=== PATIENT | male | born 1975 | race Two or more races ===

== ENCOUNTER 2017-02-26 01:50 | Observation (INO) | payer MEDICAID ==
[~2017-02-26] VITALS: Ht 188 cm; Wt 76.2 kg
[2017-02-26 02:47] LABS: DAU SCREEN DISCLAIMER
[2017-02-26 02:59] LABS: BLOOD UREA NITROGEN 14 mg/dL (7-18)
[2017-02-26 03:00] LABS: ACETAMINOPHEN < 2 mcg/mL (10-30)
[2017-02-26] MEDS ORDERED: LORazepam 1MG TABLET PO ONE (03:30)
[2017-02-26] MEDS ORDERED: LORazepam 1MG TABLET ONE (04:53)
[2017-02-26] MEDS ORDERED: ACETAMINOPHEN 325 MG TABLET PO PRN (05:30)
[2017-02-26] MEDS ORDERED: ONDANSETRON ODT 4 MG PO PRN (05:30)
[2017-02-26] MEDS ORDERED: ZIPRASIDONE 20 MG INJ IM PRN (05:30)
[2017-02-26] MEDS: LORazepam 1MG TABLET PO PRN ×2 (08:51→15:29)
[2017-02-26 20:09] VITALS: BP 105/70
[2017-02-27] MEDS: LORazepam 1MG TABLET PO PRN ×2 (06:32→11:10)
[2017-02-27 07:35] VITALS: BP 125/74
[2017-02-27 19:33] VITALS: BP 128/76
[2017-02-27] MEDS: TRAZODONE 50MG TABLET PO PRN (20:02)
[2017-02-28] MEDS: TRAZODONE 50MG TABLET PO PRN ×2 (03:14→20:16)
[2017-02-28 07:55] VITALS: BP 108/71
[2017-02-28] MEDS: LORazepam 1MG TABLET PO PRN (18:19)
[2017-02-28 19:38] VITALS: BP 127/72
[2017-03-01] MEDS: LORazepam 1MG TABLET PO PRN ×2 (03:18→07:29)
[2017-03-01 07:57] VITALS: BP 112/75
[2017-03-01 19:05] VITALS: BP 118/66
[2017-03-01] MEDS: TRAZODONE 50MG TABLET PO PRN (20:57)
[2017-03-02] MEDS: LORazepam 1MG TABLET PO PRN ×3 (02:23→15:13)
[2017-03-02 08:45] VITALS: BP 119/77
[2017-03-02 19:52] VITALS: BP 126/76
[2017-03-02] MEDS ORDERED: QUETIAPINE 100MG TABLET PO SCH (21:00)
== END 2017-03-03 01:20 ==
LOC: ED 02:49 → EDIP 04:28 → 3E 08:01
PROVIDERS: ADMIT Hospitalist; ATTEND Hospitalist
DX: R45.851 Suicidal ideations (principal); F32.9 Major depressive disorder, single episode, unspecified; F15.10 Other stimulant abuse, uncomplicated; F41.9 Anxiety disorder, unspecified; F17.210 Nicotine dependence, cigarettes, uncomplicated; Z59.0 Homelessness
CPT/HCPCS: 36415; 80048; 80307; 80329; 82040; 85025; 99285; G0378; G0480

== ENCOUNTER 2017-07-04 19:13 | Emergency (ER) | payer MEDICAID ==
[~2017-07-04] VITALS: Ht 172.7 cm; Wt 110.0 kg
[2017-07-04] MEDS ORDERED: SODIUM CHLORIDE 0.9% 1,000 ML IV ONE (19:35)
[2017-07-04] MEDS ORDERED: LORazepam 2 MG/ML, 1ML ONE (19:35)
[2017-07-04] MEDS ORDERED: ACETAMINOPHEN 500 MG TABLET ONE (19:46)
[2017-07-04] MEDS ORDERED: ONDANSETRON 2MG/ML, 2ML IVPush ONE (20:00)
[2017-07-04] MEDS ORDERED: KETOROLAC 30 MG/1 ML IVPush ONE (20:00)
[2017-07-04] MEDS ORDERED: SODIUM CHLORIDE 0.9% 1,000ML IVBOLUS ONE ×3 (20:00→23:00)
[2017-07-04] MEDS ORDERED: LORazepam 2 MG/ML, 1ML IVPush ONE ×2 (20:00)
[2017-07-04] MEDS ORDERED: PLEASE ENTER HEIGHT AND WEIGHT MC SCH (20:00)
[2017-07-04] MEDS ORDERED: ACETAMINOPHEN 500 MG TABLET PO ONE (20:00)
[2017-07-04] MEDS ORDERED: SODIUM CHLORIDE FLUSH 10ML SYR IVF ONE (20:00)
[2017-07-04] MEDS ORDERED: HALOPERIDOL 5 MG/ML ONE (20:04)
[2017-07-04 20:12] LABS: HEMOGLOBIN 13.4 g/dL (13.7-18.0); WHITE BLOOD COUNT 9.4 x10^3/uL (3.4-10)
[2017-07-04 20:26] LABS: ASPARTATE AMINO TRANSFERASE 66 U/L (15-37); BLOOD UREA NITROGEN 24 mg/dL (7-18)
[2017-07-04 20:30] LABS: ACETAMINOPHEN < 2 mcg/mL (10-30)
[2017-07-04] MEDS ORDERED: HALOPERIDOL 5 MG/ML IVPush ONE (20:30)
[2017-07-04 21:04] LABS: DAU SCREEN DISCLAIMER
[2017-07-04] MEDS ORDERED: KETOROLAC 30 MG/1 ML ONE (21:45)
[2017-07-04] MEDS ORDERED: KETAMINE 10 MG/ML, 20ML ONE (21:58)
[2017-07-04] MEDS ORDERED: KETAMINE 100 MG/ML, 5ML IV ONE (22:00)
[2017-07-04 22:07] LABS: RAPID INFLUENZA A Negative (Negative); RAPID INFLUENZA B Negative (Negative)
[2017-07-04] MEDS ORDERED: LIDOCAINE 1%, 20ML ONE (22:19)
[2017-07-04 23:09] LABS: GLUCOSE, CSF 59 mg/dL (40-80)
[2017-07-04 23:52] VITALS: BP 112/64
== END 2017-07-05 01:48 | disposition home or self-care (01) ==
LOC: ED 22:40
DX: R50.9 Fever, unspecified (principal); F15.10 Other stimulant abuse, uncomplicated; F22 Delusional disorders; F41.9 Anxiety disorder, unspecified; R44.3 Hallucinations, unspecified
CPT/HCPCS: 36415; 62270; 70450; 71010; 80053; 80307; 80329; 81003; 82140; 82550; 82945; 83605; 84145; 84157; 85025; 87040; 87070; 87205; 87252; 87400; 89051; 96361; 96374; 96375; 96376; 99152; 99285; J1630; J1885; J2060; J7030; G0479; G0480

== ENCOUNTER 2017-07-07 10:49 | Emergency (ER) | payer MEDICAID ==
[~2017-07-07] VITALS: Ht 177.8 cm; Wt 86.9 kg
[2017-07-07 10:52] VITALS: BP 128/74
[2017-07-07] MEDS ORDERED: LIDOCAINE 1%, 20ML SQ ONE (11:30)
[2017-07-07] MEDS ORDERED: LIDOCAINE 1%, 20ML ONE (11:31)
[2017-07-07] MEDS ORDERED: BACITRACIN ZINC OINT 500U/GM, 0.9 GM ONE (12:19)
== END 2017-07-07 12:27 | disposition home or self-care (01) ==
LOC: ED 12:00
DX: L03.012 Cellulitis of left finger (principal)
CPT/HCPCS: 26010; 99284